=== PATIENT | female | born 1980 | race African-American/Black ===

== ENCOUNTER 2024-04-02 21:32 | Emergency (ER) | payer MEDICAID ==
[~2024-04-02] VITALS: Ht 167.6 cm; Wt 70.3 kg
[2024-04-02 21:50] VITALS: BP 138/94; PULSE 118; RESP 18; TEMP 97.1; O2SAT 99
[2024-04-02 22:44] LABS: BASOPHILS # (AUTO) 0.1 K/uL (0.00-0.22); BASOPHILS % (AUTO) 0.4 % (0.0-2.0); EOSINOPHILS % (AUTO) 0.2 % (0.0-4.0); HEMATOCRIT 29.2 % (36-48); HEMOGLOBIN 9.2 g/dL (12.0-16.0); LYMPHOCYTES # (AUTO) 3.9 K/uL (2.5-16.5); LYMPHOCYTES % (AUTO) 23.9 % (20.5-51.1); MEAN CORPUSCULAR HEMOGLOBIN 27 pg (27-31); MEAN CORPUSCULAR HGB CONC 32 g/dL (33-37); MEAN CORPUSCULAR VOLUME 85.8 fL (80-94); MONOCYTES # (AUTO) 0.6 K/uL (0.8-1.0); MONOCYTES % (AUTO) 3.8 % (1.7-9.3); NEUTROPHILS # (AUTO) 11.8 K/uL (1.8-7.7); NEUTROPHILS % (AUTO) 71.7 % (42.2-75.2); PLATELET COUNT (AUTO) 536 K/uL (140-450); RED CELL DISTRIBUTION WIDTH 23.7 % (11.6-13.7); WHITE BLOOD COUNT (AUTO) 16.4 K/uL (4.8-10.8)
[2024-04-02 22:53] LABS: CALCIUM 9.6 mg/dL (8.5-10.1); CARBON DIOXIDE 30.7 mmol/L (21-32); CREATININE 0.5 mg/dL (0.6-1.3)
[2024-04-02 22:58] LABS: POTASSIUM 2.7 mmol/L (3.5-5.1)
[2024-04-02 23:07] LABS: APPEARANCE,URINE CLEAR (CLEAR); COLOR,URINE YELLOW (YELLOW)
[2024-04-02 23:08] LABS: ALBUMIN 3.2 g/dL (3.4-5.0); TOTAL BILIRUBIN 1.4 mg/dL (0.0-1.0); TOTAL PROTEIN, SERUM 7.7 g/dL (6.4-8.2)
[2024-04-02 23:08] LABS: BILIRUBIN,URINE NEGATIVE (NEGATIVE); UGLUCOSE NEGATIVE (NEGATIVE)
[2024-04-02 23:09] LABS: PROTEIN,URINE SMALL (NEGATIVE)
[2024-04-02 23:10] LABS: BLOOD, URINE 2+ (NEGATIVE); LEUKOCYTE ESTERASE ,URINE NEGATIVE (NEGATIVE); UROBILINOGEN,URINE 0.4 EU/dL (0.2 - 1)
[2024-04-02 23:11] LABS: NITRITE, URINE POSITIVE (NEGATIVE)
[2024-04-02] MEDS: POTASSIUM CHLORIDE 10 MEQ TABER PO ONE (23:15)
[2024-04-02 23:28] LABS: BACTERIA,URINE 10-30 (MOD) /HPF (None Seen); MUCUS,URINE 1+ /LPF (None Seen); SQUAMOUS EPITHELIAL CELL,UR 0-3 (FEW) /LPF (0-3 (FEW)); WBC,URINE 0-5 /HPF (0-5)
[2024-04-03] MEDS ORDERED: IBUP-2213 PO (00:04)
[2024-04-03] MEDS ORDERED: ONDA8TAB87 PO (00:04)
[2024-04-03] MEDS ORDERED: OMEP40EC23 PO (00:04)
[2024-04-03 00:12] VITALS: BP 138/94; PULSE 114; RESP 18; TEMP 97.1; O2SAT 99
== END 2024-04-03 00:12 | disposition home or self-care (01) ==
LOC: MED 21:32
DX: R10.13 Epigastric pain (principal); R11.2 Nausea with vomiting, unspecified; F17.200 Nicotine dependence, unspecified, uncomplicated; Z72.89 Other problems related to lifestyle
CPT/HCPCS: 36415; 80048; 80076; 81001; 81025; 83690; 85025; 87086; 99284

== ENCOUNTER 2024-04-06 12:02 | Inpatient (IN) | payer MEDICAID ==
[~2024-04-06] VITALS: Ht 167.6 cm; Wt 70.3 kg
[~2024-04-06 12:02] MED LIST: IBUP-2213 PO; OMEP40EC23 PO; ONDA8TAB87 PO
[2024-04-06 12:23] VITALS: BP 119/79; PULSE 110; RESP 22; TEMP 98.5; O2SAT 100
[2024-04-06] MEDS: KETOROLAC 30 MG/ML VIAL IVP ONE (13:30)
[2024-04-06] MEDS: NACL 0.9% 1,000 ML IV ONE (13:30)
[2024-04-06 13:51] LABS: ALANINE AMINOTRANSFERASE 33 U/L (12-78); ALBUMIN 3.2 g/dL (3.4-5.0); ALKALINE PHOSPHATASE 298 U/L (50-136); ANION GAP 18.1 (8-16); ASPARTATE AMINOTRANSFERASE 128 U/L (15-37); CALCIUM 9.5 mg/dL (8.5-10.1); CARBON DIOXIDE 26.1 mmol/L (21-32); CHLORIDE 92 mmol/L (98-107); CREATININE 0.6 mg/dL (0.6-1.3); GFR ARICAN-AMERICAN 142 mL/min (>90); GFR NON ARICAN-AMERICAN 117 mL/min (>90); GLUCOSE 104 mg/dL (74-106); LIPASE 35 U/L (16-77); POTASSIUM 3.2 mmol/L (3.5-5.1); SODIUM SERUM 133 mmol/L (136-145); TOTAL BILIRUBIN 2.7 mg/dL (0.0-1.0); TOTAL PROTEIN, SERUM 7.4 g/dL (6.4-8.2); UREA NITROGEN, BLOOD 3 mg/dL (7-18)
[2024-04-06] MEDS ORDERED: IBUP-2213 PO (13:57)
[2024-04-06 14:10] LABS: HEMATOCRIT 30.4 % (36-48); HEMOGLOBIN 9.3 g/dL (12.0-16.0); MEAN CORPUSCULAR HEMOGLOBIN 27 pg (27-31); MEAN CORPUSCULAR HGB CONC 31 g/dL (33-37); MEAN CORPUSCULAR VOLUME 87.2 fL (80-94); PLATELET COUNT (AUTO) 566 K/uL (140-450); RED BLOOD CELL COUNT(AUTO) 3.48 MIL/uL (4.20-5.40); RED CELL DISTRIBUTION WIDTH 26.5 % (11.6-13.7); WHITE BLOOD COUNT (AUTO) 18.1 K/uL (4.8-10.8)
[2024-04-06 14:37] LABS: ANISOCYTOSIS 3+; BASOPHILS % (MANUAL) 0 % (0-2); EOSINOPHILS % (MANUAL) 0 % (0-4); HYPOCHROMASIA 2+; LYMPHOCYTES % (MANUAL) 15 % (20-46); MONOCYTES % (MANUAL) 5 % (5-12); PLATELET ESTIMATE INCREASED; POLYCHROMASIA 1+
[2024-04-06 14:38] LABS: OVALOCYTES 1+; TARGET CELLS 1+; TEAR DROP CELLS 1+
[2024-04-06 14:39] LABS: BURR CELLS 3+; STOMATOCYTES 1+
[2024-04-06 14:43] LABS: APPEARANCE,URINE SL CLOUDY (CLEAR); BILIRUBIN,URINE 3+ (NEGATIVE); BLOOD, URINE NEGATIVE (NEGATIVE); COLOR,URINE ORANGE (YELLOW); LEUKOCYTE ESTERASE ,URINE TRACE (NEGATIVE); NITRITE, URINE POSITIVE (NEGATIVE); PROTEIN,URINE 2+ (NEGATIVE); UGLUCOSE TRACE (NEGATIVE)
[2024-04-06 14:59] LABS: ICTOTEST POSITIVE (NEGATIVE)
[2024-04-06 15:00] LABS: BACTERIA,URINE 10-30 (MOD) /HPF (None Seen); RBC,URINE 0-5 /HPF (0-5); SQUAMOUS EPITHELIAL CELL,UR 4-10 (MOD) /LPF (0-3 (FEW)); WBC,URINE 0-5 /HPF (0-5)
[2024-04-06] MEDS ORDERED: ONDANSETRON 4 MG/2 ML VIAL IVP PRN (16:45)
[2024-04-06] MEDS ORDERED: HYDROmorphone 1 MG/ML AMP IVP PRN (16:45)
[2024-04-06] MEDS ORDERED: ACETAMINOPHEN 325 MG TAB PO PRN (16:45)
[2024-04-06] MEDS ORDERED: ZOLPIDEM 5 MG TAB PO PRN (16:45)
[2024-04-06] MEDS ORDERED: HYDROcodone/APAP 5/325 MG 1 TAB TAB PO PRN (16:45)
[2024-04-06] MEDS: DEXT 5% /NACL 0.9% 1,000 ML IV SCH (18:00)
[2024-04-06] MEDS: POTASSIUM CHLORIDE 10 MEQ TABER PO ONE (18:00)
[2024-04-06] MEDS ORDERED: metroNIDAZOLE 500 MG/NS PREMIX 100 ML IV SCH (21:00)
[2024-04-06 21:25] VITALS: BP 138/89; PULSE 103; PULSE 106; RESP 17; TEMP 97; O2SAT 100
[2024-04-06] MEDS: LORazepam 1 MG TAB PO PRN (22:37)
[2024-04-07] VITALS: BP 129/90; PULSE 108; PULSE 109; RESP 16; TEMP 97.5; O2SAT 98
[2024-04-07] MEDS: metroNIDAZOLE 500 MG/NS PREMIX 100 ML IV SCH (00:58)
[2024-04-07 04:00] VITALS: BP 119/81; PULSE 105; PULSE 107; RESP 17; TEMP 98.1; O2SAT 97
[2024-04-07 07:04] LABS: BASOPHILS % (AUTO) 0.1 % (0.0-2.0); EOSINOPHILS % (AUTO) 0.1 % (0.0-4.0); HEMOGLOBIN 8.1 g/dL (12.0-16.0); LYMPHOCYTES # (AUTO) 2.3 K/uL (2.5-16.5); LYMPHOCYTES % (AUTO) 15.9 % (20.5-51.1); MEAN CORPUSCULAR HEMOGLOBIN 27 pg (27-31); MEAN CORPUSCULAR HGB CONC 31 g/dL (33-37); MEAN CORPUSCULAR VOLUME 86.8 fL (80-94); MONOCYTES # (AUTO) 0.8 K/uL (0.8-1.0); MONOCYTES % (AUTO) 5.7 % (1.7-9.3); NEUTROPHILS # (AUTO) 11.3 K/uL (1.8-7.7); NEUTROPHILS % (AUTO) 78.2 % (42.2-75.2); PLATELET COUNT (AUTO) 449 K/uL (140-450); RED CELL DISTRIBUTION WIDTH 25.7 % (11.6-13.7); WHITE BLOOD COUNT (AUTO) 14.5 K/uL (4.8-10.8)
[2024-04-07 08:00] VITALS: BP_SYST 131; BP_SYST 133; BP_DIAS 84; BP_DIAS 86; PULSE 101; PULSE 107; RESP 18; TEMP 97.8; TEMP 98.3; O2SAT 100; O2SAT 98
[2024-04-07 08:13] LABS: ANION GAP 15.9 (8-16); CALCIUM 8.7 mg/dL (8.5-10.1); CARBON DIOXIDE 24.1 mmol/L (21-32); CREATININE 0.4 mg/dL (0.6-1.3)
[2024-04-07 08:19] LABS: ALBUMIN 2.7 g/dL (3.4-5.0); MAGNESIUM 1.8 mg/dL (1.8-2.4); PHOSPHORUS 2.6 mg/dL (2.5-4.9); TOTAL PROTEIN, SERUM 6.4 g/dL (6.4-8.2)
[2024-04-07] MEDS: DOCUSATE SODIUM 100 MG GELCAP PO SCH (08:37)
[2024-04-07] MEDS ORDERED: metroNIDAZOLE 500 MG/NS PREMIX 100 ML IV SCH (09:00)
[2024-04-07] MEDS: POTASSIUM CHLORIDE 10 MEQ TABER PO PRN (09:23)
[2024-04-07 12:00] VITALS: BP 131/86; PULSE 101; PULSE 103; RESP 18; TEMP 98.3; O2SAT 100
[2024-04-07] MEDS ORDERED: TRAM50TA3 PO (15:36)
[2024-04-07] MEDS ORDERED: OMEP40EC23 PO (15:36)
[2024-04-07 16:00] VITALS: BP 134/91; PULSE 102; PULSE 107; RESP 18; TEMP 98.6; O2SAT 99
[2024-04-07 16:44] VITALS: BP 134/91; PULSE 107; RESP 18; TEMP 98.6
== END 2024-04-07 17:04 | disposition home or self-care (01) | DRG 280 ==
LOC: MED 12:02 → MTU 16:47
PROVIDERS: ADMIT Hospitalist; ATTEND Hospitalist
DX: K70.10 Alcoholic hepatitis without ascites (principal); E87.1 Hypo-osmolality and hyponatremia; E87.20 Acidosis, unspecified; K74.60 Unspecified cirrhosis of liver; E87.6 Hypokalemia; F10.21 Alcohol dependence, in remission; Z79.899 Other long term (current) drug therapy
CPT/HCPCS: 36415; 71045; 76705; 80053; 81001; 82248; 83690; 83735; 84100; 84484; 85025; 87081; 87086; 93005; 96374; 96375; 99285; J0696; J1644; J1885; J3490; J7060; Q0092; Q9967

== ENCOUNTER 2024-04-13 13:29 | Emergency (ER) | payer MEDICAID ==
[~2024-04-13] VITALS: Ht 167.6 cm; Wt 68.0 kg
[~2024-04-13 13:29] MED LIST changes: -IBUP-2213 PO; +TRAM50TA3 PO
[2024-04-13 13:51] VITALS: BP 129/89; PULSE 125; RESP 18; TEMP 97.9; O2SAT 100
[2024-04-13 14:19] VITALS: BP 141/87; PULSE 123; RESP 18; TEMP 97.9
[2024-04-13 14:46] LABS: BILIRUBIN,URINE 3+ (NEGATIVE); BLOOD, URINE TRACE-I (NEGATIVE); COLOR,URINE YELLOW (YELLOW); LEUKOCYTE ESTERASE ,URINE TRACE (NEGATIVE); NITRITE, URINE POSITIVE (NEGATIVE); PROTEIN,URINE 2+ (NEGATIVE); UGLUCOSE TRACE (NEGATIVE)
[2024-04-13 14:47] LABS: APPEARANCE,URINE SLIGHTLY CLOUDY (CLEAR)
[2024-04-13 15:20] LABS: ICTOTEST POSITIVE (NEGATIVE); RBC,URINE 0-5 /HPF (0-5); WBC,URINE 0-5 /HPF (0-5)
[2024-04-13 15:21] LABS: BACTERIA,URINE 2+ /HPF (None Seen); MUCUS,URINE None Seen /LPF (None Seen); SQUAMOUS EPITHELIAL CELL,UR 4-10 (MOD) /LPF (0-3 (FEW))
[2024-04-13 15:29] LABS: BASOPHILS # (AUTO) 0.1 K/uL (0.00-0.22); BASOPHILS % (AUTO) 0.4 % (0.0-2.0); HEMATOCRIT 27.6 % (36-48); HEMOGLOBIN 8.7 g/dL (12.0-16.0); MEAN CORPUSCULAR HEMOGLOBIN 28 pg (27-31); MEAN CORPUSCULAR HGB CONC 32 g/dL (33-37); MEAN CORPUSCULAR VOLUME 89.2 fL (80-94); MONOCYTES % (AUTO) 5.8 % (1.7-9.3); NEUTROPHILS # (AUTO) 13.9 K/uL (1.8-7.7); NEUTROPHILS % (AUTO) 81.8 % (42.2-75.2); PLATELET COUNT (AUTO) 609 K/uL (140-450); RED CELL DISTRIBUTION WIDTH 28.3 % (11.6-13.7); WHITE BLOOD COUNT (AUTO) 16.9 K/uL (4.8-10.8)
[2024-04-13 15:30] VITALS: O2SAT 100
[2024-04-13 15:45] LABS: ANION GAP 14.1 (8-16); CALCIUM 9.6 mg/dL (8.5-10.1); CARBON DIOXIDE 27.7 mmol/L (21-32); CREATININE 0.5 mg/dL (0.6-1.3); POTASSIUM 3.8 mmol/L (3.5-5.1)
[2024-04-13 15:50] LABS: BILIRUBIN,DIRECT 2.2 mg/dL (0.0-0.3); TOTAL BILIRUBIN 2.8 mg/dL (0.0-1.0); TOTAL PROTEIN, SERUM 7.2 g/dL (6.4-8.2)
[2024-04-13] MEDS: NACL 0.9% 1,000 ML IV SCH (16:18)
[2024-04-13] MEDS ORDERED: ACET-8905 PO (17:15)
[2024-04-13] MEDS ORDERED: PRED20TA5 PO (17:32)
== END 2024-04-13 18:08 | disposition home or self-care (01) ==
LOC: MED 13:29
DX: R10.13 Epigastric pain (principal); F17.200 Nicotine dependence, unspecified, uncomplicated; Z79.899 Other long term (current) drug therapy
CPT/HCPCS: 36415; 80048; 80076; 81001; 83690; 85025; 96360; 99283; J7030

== ENCOUNTER 2024-04-16 16:26 | Inpatient (IN) | payer MEDICAID ==
[~2024-04-16] VITALS: Ht 165.1 cm; Wt 70.3 kg
[2024-04-16 02:08] VITALS: PULSE 114; RESP 16
[~2024-04-16 16:26] MED LIST changes: +ACET-8905 PO; +PRED20TA5 PO
[2024-04-16 16:43] VITALS: BP 120/78; PULSE 133; RESP 12; TEMP 97.5; O2SAT 98
[2024-04-16] MEDS: NACL 0.9% 1,000 ML IV ONE ×2 (17:29→19:45)
[2024-04-16 18:02] LABS: BASOPHILS % (AUTO) 0.1 % (0.0-2.0); EOSINOPHILS % (AUTO) 0.1 % (0.0-4.0); HEMATOCRIT 30.1 % (36-48); HEMOGLOBIN 9.2 g/dL (12.0-16.0); LYMPHOCYTES # (AUTO) 2.6 K/uL (2.5-16.5); LYMPHOCYTES % (AUTO) 10.5 % (20.5-51.1); MEAN CORPUSCULAR HEMOGLOBIN 27 pg (27-31); MEAN CORPUSCULAR HGB CONC 31 g/dL (33-37); MEAN CORPUSCULAR VOLUME 89.3 fL (80-94); MONOCYTES # (AUTO) 0.9 K/uL (0.8-1.0); MONOCYTES % (AUTO) 3.4 % (1.7-9.3); NEUTROPHILS # (AUTO) 21.7 K/uL (1.8-7.7); NEUTROPHILS % (AUTO) 85.9 % (42.2-75.2); PLATELET COUNT (AUTO) 777 K/uL (140-450); RED BLOOD CELL COUNT(AUTO) 3.37 MIL/uL (4.20-5.40); RED CELL DISTRIBUTION WIDTH 27.5 % (11.6-13.7)
[2024-04-16 18:08] LABS: WHITE BLOOD COUNT (AUTO) 25.3 K/uL (4.8-10.8)
[2024-04-16 18:13] LABS: ANION GAP 15.5 (8-16); CALCIUM 10.2 mg/dL (8.5-10.1); CARBON DIOXIDE 26.2 mmol/L (21-32); CREATININE 0.6 mg/dL (0.6-1.3); INR 1.32 (0.8-1.2); POTASSIUM 3.7 mmol/L (3.5-5.1); PROTHROMBIN TIME 13.7 secs (10.8-13.4)
[2024-04-16 18:24] LABS: ALBUMIN 3.2 g/dL (3.4-5.0); BILIRUBIN,DIRECT 2.4 mg/dL (0.0-0.3); TOTAL PROTEIN, SERUM 7.7 g/dL (6.4-8.2)
[2024-04-16 19:08] LABS: LACTIC ACID 2.8 mmol/L (0.4-2.0)
[2024-04-16 20:48] LABS: APPEARANCE,URINE CLEAR (CLEAR); BILIRUBIN,URINE 2+ (NEGATIVE); BLOOD, URINE 2+ (NEGATIVE); COLOR,URINE BROWN (YELLOW); LEUKOCYTE ESTERASE ,URINE TRACE (NEGATIVE); NITRITE, URINE NEGATIVE (NEGATIVE); PROTEIN,URINE NEGATIVE (NEGATIVE); UGLUCOSE NEGATIVE (NEGATIVE)
[2024-04-16 20:52] LABS: ICTOTEST POSITIVE (NEGATIVE)
[2024-04-16 21:01] LABS: AMPHETAMINE, URINE NEGATIVE ng/ml (NEG <=1000); BACTERIA,URINE 10-30 (MOD) /HPF (None Seen); BARBITURATE, URINE NEGATIVE ng/ml (NEG <=200); BENZODIAZEPINE, URINE NEGATIVE ng/mL (NEG <=200); CANNABINOID, URINE NEGATIVE ng/mL (NEG <=50); COCAINE, URINE NEGATIVE ng/mL (NEG <=300); OPIATE, URINE NEGATIVE ng/mL (NEG <=2000); PHENCYCLIDINE SCREEN,URINE NEGATIVE ng/mL (NEG <=25); SQUAMOUS EPITHELIAL CELL,UR 0-3 (FEW) /LPF (0-3 (FEW))
[2024-04-16] MEDS ORDERED: PIPERACILLIN/TAZOBACTAM 3.375 GM VIAL IV ONE (23:13)
[2024-04-16] MEDS: PIPERACILLIN/TAZOBACTAM 3.375 GM in DEXTROSE 5% 50 ML IV ONE (23:20)
[2024-04-16] MEDS ORDERED: KCL 20 MEQ IN 100 mL PREMIX 200 ML IV PRN (23:50)
[2024-04-16] MEDS ORDERED: HYDROcodone/APAP 5/325 MG 1 TAB TAB PO PRN (23:50)
[2024-04-17] MEDS: DEXT 5% /NACL 0.9% 1,000 ML IV SCH (00:35)
[2024-04-17 02:08] VITALS: BP 123/84; PULSE 114; RESP 16; TEMP 98.1; O2SAT 97
[2024-04-17] MEDS: MORPHINE SULFATE 4 MG/ML SYR IVP PRN (03:17)
[2024-04-17 04:00] VITALS: BP 129/80; PULSE 116; PULSE 119; RESP 16; TEMP 98; O2SAT 98
[2024-04-17] MEDS: PIPERACILLIN/TAZOBACTAM 3.375 GM in DEXTROSE 5% 50 ML IV SCH (06:39)
[2024-04-17 08:00] VITALS: BP 125/87; PULSE 116; PULSE 65; RESP 16; RESP 18; TEMP 97.1; O2SAT 99
[2024-04-17 08:45] LABS: BASOPHILS % (AUTO) 0.2 % (0.0-2.0); EOSINOPHILS % (AUTO) 0.1 % (0.0-4.0); HEMATOCRIT 27.7 % (36-48); HEMOGLOBIN 8.4 g/dL (12.0-16.0); MEAN CORPUSCULAR HEMOGLOBIN 28 pg (27-31); MEAN CORPUSCULAR HGB CONC 31 g/dL (33-37); MEAN CORPUSCULAR VOLUME 90.3 fL (80-94); MONOCYTES # (AUTO) 0.9 K/uL (0.8-1.0); MONOCYTES % (AUTO) 5.2 % (1.7-9.3); NEUTROPHILS # (AUTO) 15.1 K/uL (1.8-7.7); NEUTROPHILS % (AUTO) 83.5 % (42.2-75.2); PLATELET COUNT (AUTO) 572 K/uL (140-450); RED BLOOD CELL COUNT(AUTO) 3.07 MIL/uL (4.20-5.40); RED CELL DISTRIBUTION WIDTH 27.3 % (11.6-13.7); WHITE BLOOD COUNT (AUTO) 18.1 K/uL (4.8-10.8)
[2024-04-17 09:05] LABS: ALBUMIN 2.5 g/dL (3.4-5.0); ANION GAP 13.7 (8-16); CALCIUM 8.9 mg/dL (8.5-10.1); CARBON DIOXIDE 26.5 mmol/L (21-32); CREATININE 0.4 mg/dL (0.6-1.3); MAGNESIUM 1.8 mg/dL (1.8-2.4); POTASSIUM 3.2 mmol/L (3.5-5.1); TOTAL BILIRUBIN 2.4 mg/dL (0.0-1.0); TOTAL PROTEIN, SERUM 6.5 g/dL (6.4-8.2)
[2024-04-17 09:14] LABS: ANISOCYTOSIS 3+; TARGET CELLS 1+
[2024-04-17] MEDS: LORazepam 1 MG TAB PO PRN (10:58)
[2024-04-17 12:00] VITALS: BP 130/78; PULSE 123; PULSE 75; RESP 18; TEMP 98.7; O2SAT 98
[2024-04-17 16:00] VITALS: BP 128/78; PULSE 120; PULSE 68; RESP 20; TEMP 98.1; O2SAT 100
[2024-04-17 20:00] VITALS: BP 143/104; PULSE 118; PULSE 128; RESP 20; TEMP 98.2; O2SAT 100
[2024-04-17] MEDS: POTASSIUM CHLORIDE 10 MEQ TABER PO PRN (22:44)
[2024-04-17] MEDS: ZOLPIDEM 5 MG TAB PO PRN (22:44)
[2024-04-18 06:25] LABS: BASOPHILS % (AUTO) 0.2 % (0.0-2.0); EOSINOPHILS % (AUTO) 0.1 % (0.0-4.0); HEMATOCRIT 26.8 % (36-48); HEMOGLOBIN 8.3 g/dL (12.0-16.0); LYMPHOCYTES # (AUTO) 1.7 K/uL (2.5-16.5); LYMPHOCYTES % (AUTO) 10.4 % (20.5-51.1); MEAN CORPUSCULAR HEMOGLOBIN 27 pg (27-31); MEAN CORPUSCULAR HGB CONC 31 g/dL (33-37); MONOCYTES % (AUTO) 5.9 % (1.7-9.3); NEUTROPHILS % (AUTO) 83.4 % (42.2-75.2); PLATELET COUNT (AUTO) 623 K/uL (140-450); RED BLOOD CELL COUNT(AUTO) 3.01 MIL/uL (4.20-5.40); RED CELL DISTRIBUTION WIDTH 26.9 % (11.6-13.7); WHITE BLOOD COUNT (AUTO) 16.8 K/uL (4.8-10.8)
[2024-04-18 06:43] LABS: ALBUMIN 2.5 g/dL (3.4-5.0); ANION GAP 15.5 (8-16); CALCIUM 8.5 mg/dL (8.5-10.1); CARBON DIOXIDE 22.1 mmol/L (21-32); CREATININE 0.5 mg/dL (0.6-1.3); MAGNESIUM 1.8 mg/dL (1.8-2.4); POTASSIUM 3.6 mmol/L (3.5-5.1); TOTAL BILIRUBIN 2.2 mg/dL (0.0-1.0); TOTAL PROTEIN, SERUM 6.4 g/dL (6.4-8.2)
[2024-04-18 08:00] VITALS: BP 125/87; PULSE 110; PULSE 80; RESP 18; TEMP 98.1; O2SAT 99
[2024-04-18] MEDS: PANTOPRAZOLE 40 MG INJ VIAL IVP SCH (08:49)
[2024-04-18 12:00] VITALS: BP 138/80; PULSE 120; RESP 18; TEMP 98.6; O2SAT 99
[2024-04-18] MEDS: DOCUSATE SODIUM 100 MG GELCAP PO SCH (12:17)
[2024-04-18 16:00] VITALS: BP 132/87; PULSE 107; PULSE 118; RESP 18; TEMP 98.6; O2SAT 97
[2024-04-18] MEDS: PENTOXIFYLLINE 400 MG TABER PO SCH (17:00)
[2024-04-18 20:00] VITALS: BP 140/98; PULSE 119; PULSE 122; RESP 18; TEMP 97.5; O2SAT 98
[2024-04-19] VITALS: BP 132/86; PULSE 106; PULSE 127; RESP 18; TEMP 98.2; O2SAT 98
[2024-04-19 04:00] VITALS: BP 141/91; PULSE 114; PULSE 129; RESP 18; TEMP 98.4; O2SAT 97
[2024-04-19 06:25] LABS: BASOPHILS # (AUTO) 0.1 K/uL (0.00-0.22); BASOPHILS % (AUTO) 0.3 % (0.0-2.0); EOSINOPHILS # (AUTO) 0.1 K/uL (0-0.4); EOSINOPHILS % (AUTO) 0.3 % (0.0-4.0); HEMATOCRIT 26.1 % (36-48); LYMPHOCYTES # (AUTO) 1.9 K/uL (2.5-16.5); LYMPHOCYTES % (AUTO) 11.5 % (20.5-51.1); MEAN CORPUSCULAR HEMOGLOBIN 27 pg (27-31); MEAN CORPUSCULAR HGB CONC 31 g/dL (33-37); MEAN CORPUSCULAR VOLUME 88.9 fL (80-94); MONOCYTES % (AUTO) 5.8 % (1.7-9.3); NEUTROPHILS # (AUTO) 13.8 K/uL (1.8-7.7); NEUTROPHILS % (AUTO) 82.1 % (42.2-75.2); PLATELET COUNT (AUTO) 660 K/uL (140-450); RED BLOOD CELL COUNT(AUTO) 2.93 MIL/uL (4.20-5.40); RED CELL DISTRIBUTION WIDTH 26.4 % (11.6-13.7); WHITE BLOOD COUNT (AUTO) 16.8 K/uL (4.8-10.8)
[2024-04-19 06:31] LABS: ALBUMIN 2.5 g/dL (3.4-5.0); ANION GAP 14.8 (8-16); CALCIUM 8.8 mg/dL (8.5-10.1); CREATININE 0.4 mg/dL (0.6-1.3); MAGNESIUM 1.7 mg/dL (1.8-2.4); POTASSIUM 3.8 mmol/L (3.5-5.1); TOTAL BILIRUBIN 1.9 mg/dL (0.0-1.0); TOTAL PROTEIN, SERUM 6.7 g/dL (6.4-8.2)
[2024-04-19 08:00] VITALS: BP 131/92; PULSE 118; PULSE 119; RESP 16; RESP 18; TEMP 98.7; O2SAT 96; O2SAT 98
[2024-04-19] MEDS: FOLIC ACID 1 MG TAB PO SCH (09:26)
[2024-04-19] MEDS: MULTIVITAMIN/MINERALS 1 TAB PO SCH (09:26)
[2024-04-19] MEDS: THIAMINE 100 MG TAB PO SCH (09:26)
[2024-04-19 12:00] VITALS: BP 130/84; PULSE 121; PULSE 122; RESP 18; TEMP 96.7; O2SAT 99
[2024-04-19 16:00] VITALS: BP 127/89; PULSE 121; PULSE 124; RESP 18; TEMP 97.7; O2SAT 97
[2024-04-19] MEDS ORDERED: SENNA 8.6 MG TAB PO SCH (18:15)
[2024-04-19 20:00] VITALS: BP 119/93; PULSE 123; PULSE 124; RESP 18; TEMP 96.9; O2SAT 99
[2024-04-19] MEDS: POLYETHYLENE GLYCOL 17 GM/PKT PO SCH (21:44)
[2024-04-19] MEDS: LACTULOSE 20 GM/30 ML UDC PO SCH (21:44)
[2024-04-20] VITALS (7 sets, daily range): BP systolic 127–148; BP diastolic 90–100; PULSE 100–129; RESP 18–24; TEMP 97.5–97.9; O2SAT 96–100
[2024-04-20 05:36] LABS: BASOPHILS # (AUTO) 0.1 K/uL (0.00-0.22); BASOPHILS % (AUTO) 0.5 % (0.0-2.0); EOSINOPHILS % (AUTO) 0.2 % (0.0-4.0); HEMATOCRIT 27.2 % (36-48); HEMOGLOBIN 8.5 g/dL (12.0-16.0); LYMPHOCYTES # (AUTO) 2.4 K/uL (2.5-16.5); LYMPHOCYTES % (AUTO) 14.3 % (20.5-51.1); MEAN CORPUSCULAR HEMOGLOBIN 28 pg (27-31); MEAN CORPUSCULAR HGB CONC 31 g/dL (33-37); MEAN CORPUSCULAR VOLUME 89.5 fL (80-94); MONOCYTES % (AUTO) 5.8 % (1.7-9.3); NEUTROPHILS # (AUTO) 13.2 K/uL (1.8-7.7); NEUTROPHILS % (AUTO) 79.2 % (42.2-75.2); PLATELET COUNT (AUTO) 729 K/uL (140-450); RED BLOOD CELL COUNT(AUTO) 3.04 MIL/uL (4.20-5.40); RED CELL DISTRIBUTION WIDTH 26.3 % (11.6-13.7); WHITE BLOOD COUNT (AUTO) 16.7 K/uL (4.8-10.8)
[2024-04-20 05:50] LABS: ALBUMIN 2.5 g/dL (3.4-5.0); ANION GAP 14.1 (8-16); CALCIUM 9.3 mg/dL (8.5-10.1); CARBON DIOXIDE 26.3 mmol/L (21-32); CREATININE 0.4 mg/dL (0.6-1.3); MAGNESIUM 1.7 mg/dL (1.8-2.4); POTASSIUM 3.4 mmol/L (3.5-5.1); TOTAL BILIRUBIN 1.6 mg/dL (0.0-1.0); TOTAL PROTEIN, SERUM 6.8 g/dL (6.4-8.2)
[2024-04-20] MEDS ORDERED: LACTULOSE 20 GM/30 ML UDC PO SCH (09:00)
[2024-04-20] MEDS: fentaNYL citrate 0.05 MG/ML VIAL ONE (12:46)
[2024-04-20] MEDS: MIDAZOLAM 5 MG/5 ML VIAL ONE (12:46)
[2024-04-20] MEDS: diphenhydrAMINE 50 MG/ML VIAL ONE (12:46)
[2024-04-20] MEDS: MIDAZOLAM 5 MG/5 ML VIAL IV ONE (13:26)
[2024-04-20] MEDS: fentaNYL citrate 0.05 MG/ML VIAL IVP ONE (13:27)
[2024-04-20 16:20] LABS: THYROID STIMULATING HORMONE 6.74 uIU/mL (0.34-3.74)
[2024-04-20] MEDS: LACTULOSE 20 GM/30 ML UDC PO SCH (18:29)
[2024-04-20] MEDS: ACETAMINOPHEN 325 MG TAB PO PRN (18:30)
[2024-04-20] MEDS: SPIRONOLACTONE 25 MG TAB PO SCH (18:30)
[2024-04-20] MEDS: AMITRIPTYLINE 10 MG TAB PO SCH (20:15)
[2024-04-20] MEDS: GABAPENTIN 100 MG CAP PO SCH (20:15)
[2024-04-20] MEDS ORDERED: SENNA 8.6 MG TAB PO SCH (21:00)
[2024-04-21] VITALS (7 sets, daily range): BP systolic 133–143; BP diastolic 90–99; PULSE 121–134; RESP 18–20; TEMP 97.2–97.8; O2SAT 97–100
[2024-04-21 06:40] LABS: BASOPHILS # (AUTO) 0.2 K/uL (0.00-0.22); BASOPHILS % (AUTO) 0.8 % (0.0-2.0); EOSINOPHILS % (AUTO) 0.2 % (0.0-4.0); HEMATOCRIT 27.2 % (36-48); HEMOGLOBIN 8.5 g/dL (12.0-16.0); LYMPHOCYTES # (AUTO) 2.4 K/uL (2.5-16.5); LYMPHOCYTES % (AUTO) 11.6 % (20.5-51.1); MEAN CORPUSCULAR HEMOGLOBIN 28 pg (27-31); MEAN CORPUSCULAR HGB CONC 31 g/dL (33-37); MEAN CORPUSCULAR VOLUME 89.2 fL (80-94); MONOCYTES # (AUTO) 1.4 K/uL (0.8-1.0); MONOCYTES % (AUTO) 6.7 % (1.7-9.3); NEUTROPHILS # (AUTO) 16.7 K/uL (1.8-7.7); NEUTROPHILS % (AUTO) 80.7 % (42.2-75.2); PLATELET COUNT (AUTO) 778 K/uL (140-450); RED BLOOD CELL COUNT(AUTO) 3.05 MIL/uL (4.20-5.40); RED CELL DISTRIBUTION WIDTH 25.4 % (11.6-13.7); WHITE BLOOD COUNT (AUTO) 20.6 K/uL (4.8-10.8)
[2024-04-21 07:11] LABS: ALBUMIN 2.7 g/dL (3.4-5.0); ANION GAP 14.6 (8-16); CALCIUM 9.4 mg/dL (8.5-10.1); CARBON DIOXIDE 25.1 mmol/L (21-32); CREATININE 0.4 mg/dL (0.6-1.3); MAGNESIUM 1.5 mg/dL (1.8-2.4); POTASSIUM 3.7 mmol/L (3.5-5.1); TOTAL BILIRUBIN 1.9 mg/dL (0.0-1.0); TOTAL PROTEIN, SERUM 7.2 g/dL (6.4-8.2)
[2024-04-21] MEDS: FUROSEMIDE 20 MG TAB PO SCH (10:12)
[2024-04-21] MEDS: SPIRONOLACTONE 25 MG TAB PO SCH (10:13)
[2024-04-21 11:55] LABS: HEPATITIS B SURFACE ANTIBODY Reactive (.); HEPATITIS B SURFACE ANTIGEN Negative (Negative); HEPATITIS C AB Non Reactive (Non Reactive)
[2024-04-21] MEDS: HYDROcodone/APAP 5/325 MG 1 TAB TAB PO PRN (17:43)
[2024-04-21 20:19] LABS: HEPATITIS A ANTIBODY TOTAL POSITIVE (Negative)
[2024-04-21 20:21] LABS: HEPATITIS C PCR QUANTITATIVE NON REACTIVE
[2024-04-21] MEDS: MAG SULF 2000 MG/WATER PREMIX 50 ML IV PRN (21:46)
[2024-04-22] VITALS (7 sets, daily range): BP systolic 127–145; BP diastolic 81–98; PULSE 101–138; RESP 18–20; TEMP 97.4–99.3; O2SAT 95–100
[2024-04-22] MEDS: NACL 0.9% 1,000 ML IV SCH (17:44)
[2024-04-23] VITALS (7 sets, daily range): BP systolic 120–143; BP diastolic 76–100; PULSE 120–138; RESP 18; TEMP 97.2–98.7; O2SAT 96–100
[2024-04-23 13:42] LABS: HEMOGLOBIN 8.2 g/dL (12.0-16.0)
[2024-04-23 13:43] LABS: MEAN CORPUSCULAR HEMOGLOBIN 27 pg (27-31); MEAN CORPUSCULAR HGB CONC 31 g/dL (33-37); MEAN CORPUSCULAR VOLUME 88.5 fL (80-94); PLATELET COUNT (AUTO) 778 K/uL (140-450); RED BLOOD CELL COUNT(AUTO) 3.05 MIL/uL (4.20-5.40); RED CELL DISTRIBUTION WIDTH 25.2 % (11.6-13.7)
[2024-04-23 13:50] LABS: ALBUMIN 2.5 g/dL (3.4-5.0); ANION GAP 17.5 (8-16); CALCIUM 9.1 mg/dL (8.5-10.1); CARBON DIOXIDE 23.7 mmol/L (21-32); CREATININE 0.4 mg/dL (0.6-1.3); POTASSIUM 4.2 mmol/L (3.5-5.1); TOTAL BILIRUBIN 2.1 mg/dL (0.0-1.0); TOTAL PROTEIN, SERUM 7.1 g/dL (6.4-8.2)
[2024-04-23 14:20] LABS: WHITE BLOOD COUNT (AUTO) 27.9 K/uL (4.8-10.8)
[2024-04-23 16:49] LABS: LYMPHOCYTES % (MANUAL) 10 % (20-46); MONOCYTES % (MANUAL) 2 % (5-12)
[2024-04-23 16:50] LABS: ANISOCYTOSIS 2+; HYPOCHROMASIA 3+; PLATELET ESTIMATE INCREASED
[2024-04-24] VITALS (7 sets, daily range): BP systolic 122–140; BP diastolic 66–96; PULSE 120–131; RESP 18; TEMP 97.1–98.6; O2SAT 95–100
[2024-04-24 06:11] LABS: ANTI-NUCLEAR ANTIBODY TITER Negative (.)
[2024-04-25] VITALS (9 sets, daily range): BP systolic 117–143; BP diastolic 62–98; PULSE 119–138; RESP 17–20; TEMP 97.2–98.7; O2SAT 96–100
[2024-04-25] MEDS: ZOLPIDEM 5 MG TAB PO STA (02:02)
[2024-04-25 17:58] LABS: ANION GAP 15.3 (8-16); CALCIUM 9.1 mg/dL (8.5-10.1); CARBON DIOXIDE 24.2 mmol/L (21-32); CREATININE 0.4 mg/dL (0.6-1.3); POTASSIUM 3.5 mmol/L (3.5-5.1)
[2024-04-25 18:06] LABS: ALBUMIN 2.5 g/dL (3.4-5.0); BILIRUBIN,DIRECT 1.3 mg/dL (0.0-0.3); TOTAL BILIRUBIN 1.4 mg/dL (0.0-1.0); TOTAL PROTEIN, SERUM 7.3 g/dL (6.4-8.2)
[2024-04-26] VITALS: BP 156/88; PULSE 126; PULSE 127; RESP 19; TEMP 97.8; O2SAT 97
[2024-04-26] MEDS: ZOLPIDEM 5 MG TAB PO PRN (00:34)
[2024-04-26 04:00] VITALS: BP 150/82; PULSE 122; PULSE 123; RESP 19; TEMP 98.1; O2SAT 98
[2024-04-26 08:00] VITALS: BP 156/115; PULSE 119; PULSE 120; PULSE 128; RESP 19; TEMP 97.8; O2SAT 97; O2SAT 99
[2024-04-26 12:00] VITALS: BP 142/87; PULSE 121; PULSE 124; RESP 19; TEMP 97.7; O2SAT 98
[2024-04-26 16:00] VITALS: BP 150/98; PULSE 123; PULSE 124; RESP 19; TEMP 97.6; O2SAT 97
[2024-04-26 20:00] VITALS: BP 160/90; PULSE 68; PULSE 76; PULSE 80; RESP 18; TEMP 97.6; O2SAT 97
[2024-04-27] VITALS (7 sets, daily range): BP systolic 120–156; BP diastolic 70–96; PULSE 88–128; RESP 16–20; TEMP 97.4–98.3; O2SAT 96–99
[2024-04-27] MEDS ORDERED: KCL 20 MEQ IN 100 mL PREMIX 200 ML IV PRN (09:15)
[2024-04-27] MEDS ORDERED: MAG SULF 2000 MG/WATER PREMIX 50 ML IV PRN (09:15)
[2024-04-27 12:46] LABS: BASOPHILS # (AUTO) 0.2 K/uL (0.00-0.22); EOSINOPHILS # (AUTO) 0.1 K/uL (0-0.4); EOSINOPHILS % (AUTO) 0.3 % (0.0-4.0); LYMPHOCYTES # (AUTO) 1.8 K/uL (2.5-16.5); LYMPHOCYTES % (AUTO) 9.9 % (20.5-51.1); MEAN CORPUSCULAR HEMOGLOBIN 27 pg (27-31); MEAN CORPUSCULAR HGB CONC 31 g/dL (33-37); MEAN CORPUSCULAR VOLUME 86.1 fL (80-94); MONOCYTES # (AUTO) 1.1 K/uL (0.8-1.0); MONOCYTES % (AUTO) 6.1 % (1.7-9.3); NEUTROPHILS # (AUTO) 15.2 K/uL (1.8-7.7); NEUTROPHILS % (AUTO) 82.7 % (42.2-75.2); PLATELET COUNT (AUTO) 653 K/uL (140-450); RED BLOOD CELL COUNT(AUTO) 3.03 MIL/uL (4.20-5.40); RED CELL DISTRIBUTION WIDTH 23.8 % (11.6-13.7); WHITE BLOOD COUNT (AUTO) 18.4 K/uL (4.8-10.8)
[2024-04-27 12:48] LABS: FOLIC ACID 4.1 ng/mL (>3.0)
[2024-04-27 13:00] LABS: ALBUMIN 2.3 g/dL (3.4-5.0); BILIRUBIN,DIRECT 1.2 mg/dL (0.0-0.3); TOTAL BILIRUBIN 1.3 mg/dL (0.0-1.0)
[2024-04-27] MEDS: LUBIPROSTONE 24 MCG CAPSULE PO SCH (17:27)
[2024-04-27] MEDS: AMITRIPTYLINE 25 MG TAB PO SCH (20:07)
[2024-04-28 04:00] VITALS: BP 148/89; PULSE 125; RESP 19; TEMP 98.2; O2SAT 97
[2024-04-28 05:45] LABS: BASOPHILS # (AUTO) 0.1 K/uL (0.00-0.22); BASOPHILS % (AUTO) 0.5 % (0.0-2.0); EOSINOPHILS # (AUTO) 0.1 K/uL (0-0.4); EOSINOPHILS % (AUTO) 0.3 % (0.0-4.0); HEMATOCRIT 26.7 % (36-48); HEMOGLOBIN 8.3 g/dL (12.0-16.0); LYMPHOCYTES % (AUTO) 14.8 % (20.5-51.1); MEAN CORPUSCULAR HEMOGLOBIN 27 pg (27-31); MEAN CORPUSCULAR HGB CONC 31 g/dL (33-37); MONOCYTES # (AUTO) 1.2 K/uL (0.8-1.0); NEUTROPHILS # (AUTO) 15.7 K/uL (1.8-7.7); NEUTROPHILS % (AUTO) 78.4 % (42.2-75.2); PLATELET COUNT (AUTO) 661 K/uL (140-450); RED BLOOD CELL COUNT(AUTO) 3.11 MIL/uL (4.20-5.40); RED CELL DISTRIBUTION WIDTH 24.1 % (11.6-13.7)
[2024-04-28 06:35] LABS: ALBUMIN 2.4 g/dL (3.4-5.0); ANION GAP 14.5 (8-16); CALCIUM 9.4 mg/dL (8.5-10.1); CARBON DIOXIDE 23.8 mmol/L (21-32); CREATININE 0.4 mg/dL (0.6-1.3); MAGNESIUM 1.7 mg/dL (1.8-2.4); POTASSIUM 3.3 mmol/L (3.5-5.1); TOTAL BILIRUBIN 1.3 mg/dL (0.0-1.0); TOTAL PROTEIN, SERUM 7.3 g/dL (6.4-8.2)
[2024-04-28 08:00] VITALS: PULSE 118; RESP 18; O2SAT 96
[2024-04-28] MEDS: POTASSIUM CHLORIDE 10 MEQ TABER PO PRN (09:28)
[2024-04-28] MEDS: MAGNESIUM OXIDE 400 MG TAB PO PRN (09:29)
[2024-04-28 12:00] VITALS: BP 147/90; PULSE 121; RESP 18; TEMP 97.6; O2SAT 97
[2024-04-28 20:00] VITALS: BP 131/81; PULSE 121; RESP 19; TEMP 96.7; O2SAT 96; O2SAT 97
[2024-04-29] MEDS: TEMAZEPAM 15 MG CAP PO PRN (01:03)
[2024-04-29 04:00] VITALS: BP 176/100; PULSE 127; RESP 18; TEMP 96.5; O2SAT 96
[2024-04-29 06:09] LABS: BASOPHILS # (AUTO) 0.1 K/uL (0.00-0.22); BASOPHILS % (AUTO) 0.3 % (0.0-2.0); EOSINOPHILS # (AUTO) 0.1 K/uL (0-0.4); EOSINOPHILS % (AUTO) 0.3 % (0.0-4.0); HEMATOCRIT 27.3 % (36-48); HEMOGLOBIN 8.4 g/dL (12.0-16.0); LYMPHOCYTES # (AUTO) 3.1 K/uL (2.5-16.5); LYMPHOCYTES % (AUTO) 14.8 % (20.5-51.1); MEAN CORPUSCULAR HEMOGLOBIN 26 pg (27-31); MEAN CORPUSCULAR HGB CONC 31 g/dL (33-37); MEAN CORPUSCULAR VOLUME 85.9 fL (80-94); MONOCYTES # (AUTO) 1.4 K/uL (0.8-1.0); MONOCYTES % (AUTO) 6.8 % (1.7-9.3); NEUTROPHILS # (AUTO) 16.2 K/uL (1.8-7.7); NEUTROPHILS % (AUTO) 77.8 % (42.2-75.2); PLATELET COUNT (AUTO) 679 K/uL (140-450); RED BLOOD CELL COUNT(AUTO) 3.18 MIL/uL (4.20-5.40); RED CELL DISTRIBUTION WIDTH 23.7 % (11.6-13.7); WHITE BLOOD COUNT (AUTO) 20.9 K/uL (4.8-10.8)
[2024-04-29 06:32] LABS: ALBUMIN 2.6 g/dL (3.4-5.0); ANION GAP 15.1 (8-16); CALCIUM 9.7 mg/dL (8.5-10.1); CARBON DIOXIDE 23.8 mmol/L (21-32); CREATININE 0.4 mg/dL (0.6-1.3); MAGNESIUM 1.7 mg/dL (1.8-2.4); POTASSIUM 3.9 mmol/L (3.5-5.1); TOTAL BILIRUBIN 1.3 mg/dL (0.0-1.0); TOTAL PROTEIN, SERUM 7.8 g/dL (6.4-8.2)
[2024-04-29 08:00] VITALS: PULSE 121; RESP 19; O2SAT 97
[2024-04-29 10:26] LABS: THYROID STIMULATING HORMONE 4.23 uIU/mL (0.34-3.74)
[2024-04-29] MEDS: MAGNESIUM OXIDE 400 MG TAB PO PRN (10:43)
[2024-04-29 12:00] VITALS: TEMP 98
[2024-04-29 16:00] VITALS: BP 133/92; PULSE 125; RESP 18; TEMP 97.6; O2SAT 98
[2024-04-29 16:28] VITALS: O2SAT 100
[2024-04-29 20:00] VITALS: PULSE 78; RESP 19; O2SAT 93
[2024-04-29] MEDS: HYDROcodone/APAP 5/325 MG 1 TAB TAB PO PRN (22:42)
[2024-04-30 04:00] VITALS: BP 135/87; PULSE 127; RESP 19; TEMP 96.6; O2SAT 98
[2024-04-30 05:30] LABS: BASOPHILS # (AUTO) 0.1 K/uL (0.00-0.22); BASOPHILS % (AUTO) 0.5 % (0.0-2.0); EOSINOPHILS # (AUTO) 0.1 K/uL (0-0.4); EOSINOPHILS % (AUTO) 0.3 % (0.0-4.0); HEMATOCRIT 28.2 % (36-48); HEMOGLOBIN 8.7 g/dL (12.0-16.0); LYMPHOCYTES # (AUTO) 3.1 K/uL (2.5-16.5); LYMPHOCYTES % (AUTO) 13.8 % (20.5-51.1); MEAN CORPUSCULAR HEMOGLOBIN 27 pg (27-31); MEAN CORPUSCULAR HGB CONC 31 g/dL (33-37); MEAN CORPUSCULAR VOLUME 85.5 fL (80-94); MONOCYTES # (AUTO) 1.4 K/uL (0.8-1.0); MONOCYTES % (AUTO) 6.4 % (1.7-9.3); NEUTROPHILS # (AUTO) 17.6 K/uL (1.8-7.7); PLATELET COUNT (AUTO) 736 K/uL (140-450); RED CELL DISTRIBUTION WIDTH 23.6 % (11.6-13.7); WHITE BLOOD COUNT (AUTO) 22.2 K/uL (4.8-10.8)
[2024-04-30 06:17] LABS: ALBUMIN 2.6 g/dL (3.4-5.0); ANION GAP 15.6 (8-16); CALCIUM 9.5 mg/dL (8.5-10.1); CARBON DIOXIDE 23.9 mmol/L (21-32); CREATININE 0.4 mg/dL (0.6-1.3); MAGNESIUM 1.8 mg/dL (1.8-2.4); POTASSIUM 3.5 mmol/L (3.5-5.1); TOTAL BILIRUBIN 1.3 mg/dL (0.0-1.0)
[2024-04-30 08:00] VITALS: PULSE 121; RESP 18; O2SAT 98
[2024-04-30 12:00] VITALS: BP 136/91; PULSE 121; RESP 18; TEMP 97.8; O2SAT 98
[2024-04-30 15:14] VITALS: O2SAT 97
[2024-04-30] MEDS: methocarbamoL 500 MG TAB PO PRN (18:00)
[2024-04-30 20:00] VITALS: BP 136/88; PULSE 129; RESP 18; TEMP 97.6; O2SAT 97; O2SAT 98
[2024-05-01 04:00] VITALS: BP 129/83; PULSE 128; RESP 20; TEMP 97.7; O2SAT 97
[2024-05-01 05:31] LABS: BASOPHILS # (AUTO) 0.1 K/uL (0.00-0.22); BASOPHILS % (AUTO) 0.7 % (0.0-2.0); EOSINOPHILS # (AUTO) 0.1 K/uL (0-0.4); EOSINOPHILS % (AUTO) 0.2 % (0.0-4.0); HEMOGLOBIN 8.6 g/dL (12.0-16.0); LYMPHOCYTES # (AUTO) 3.3 K/uL (2.5-16.5); LYMPHOCYTES % (AUTO) 15.5 % (20.5-51.1); MEAN CORPUSCULAR HEMOGLOBIN 26 pg (27-31); MEAN CORPUSCULAR HGB CONC 31 g/dL (33-37); MEAN CORPUSCULAR VOLUME 84.9 fL (80-94); MONOCYTES # (AUTO) 1.3 K/uL (0.8-1.0); NEUTROPHILS # (AUTO) 16.4 K/uL (1.8-7.7); NEUTROPHILS % (AUTO) 77.6 % (42.2-75.2); PLATELET COUNT (AUTO) 707 K/uL (140-450); RED CELL DISTRIBUTION WIDTH 22.8 % (11.6-13.7); WHITE BLOOD COUNT (AUTO) 21.2 K/uL (4.8-10.8)
[2024-05-01 06:11] LABS: ALBUMIN 2.6 g/dL (3.4-5.0); ANION GAP 16.9 (8-16); CALCIUM 9.6 mg/dL (8.5-10.1); CARBON DIOXIDE 23.6 mmol/L (21-32); CREATININE 0.4 mg/dL (0.6-1.3); MAGNESIUM 1.6 mg/dL (1.8-2.4); POTASSIUM 3.5 mmol/L (3.5-5.1); TOTAL BILIRUBIN 1.3 mg/dL (0.0-1.0); TOTAL PROTEIN, SERUM 7.9 g/dL (6.4-8.2)
[2024-05-01 08:00] VITALS: PULSE 119; RESP 18; O2SAT 100
[2024-05-01 09:07] LABS: THYROID PEROXIDASE (TPO) AB 12 IU/mL (0-34)
[2024-05-01 12:00] VITALS: BP 141/95; PULSE 119; RESP 18; TEMP 97.5; O2SAT 100
[2024-05-01 16:58] VITALS: O2SAT 97
[2024-05-01 20:00] VITALS: BP 138/87; PULSE 128; RESP 20; TEMP 98.3; O2SAT 96; O2SAT 97
[2024-05-02 04:00] VITALS: BP 143/93; PULSE 123; RESP 21; TEMP 97.8; O2SAT 96
[2024-05-02 05:58] LABS: BASOPHILS # (AUTO) 0.2 K/uL (0.00-0.22); BASOPHILS % (AUTO) 1.3 % (0.0-2.0); EOSINOPHILS # (AUTO) 0.1 K/uL (0-0.4); EOSINOPHILS % (AUTO) 0.4 % (0.0-4.0); HEMATOCRIT 28.7 % (36-48); HEMOGLOBIN 8.7 g/dL (12.0-16.0); LYMPHOCYTES # (AUTO) 3.1 K/uL (2.5-16.5); LYMPHOCYTES % (AUTO) 16.2 % (20.5-51.1); MEAN CORPUSCULAR HEMOGLOBIN 26 pg (27-31); MEAN CORPUSCULAR HGB CONC 30 g/dL (33-37); MEAN CORPUSCULAR VOLUME 86.3 fL (80-94); MONOCYTES # (AUTO) 1.3 K/uL (0.8-1.0); MONOCYTES % (AUTO) 6.6 % (1.7-9.3); NEUTROPHILS # (AUTO) 14.7 K/uL (1.8-7.7); NEUTROPHILS % (AUTO) 75.5 % (42.2-75.2); PLATELET COUNT (AUTO) 716 K/uL (140-450); RED BLOOD CELL COUNT(AUTO) 3.33 MIL/uL (4.20-5.40); RED CELL DISTRIBUTION WIDTH 22.7 % (11.6-13.7); WHITE BLOOD COUNT (AUTO) 19.4 K/uL (4.8-10.8)
[2024-05-02 06:07] LABS: ALBUMIN 2.6 g/dL (3.4-5.0); ANION GAP 13.9 (8-16); CALCIUM 9.5 mg/dL (8.5-10.1); CARBON DIOXIDE 26.6 mmol/L (21-32); CREATININE 0.4 mg/dL (0.6-1.3); MAGNESIUM 1.8 mg/dL (1.8-2.4); POTASSIUM 3.5 mmol/L (3.5-5.1); TOTAL BILIRUBIN 1.2 mg/dL (0.0-1.0)
[2024-05-02 08:00] VITALS: PULSE 123; RESP 18; O2SAT 95
[2024-05-02] MEDS ORDERED: AMIT25TA29 PO (11:37)
[2024-05-02] MEDS ORDERED: LUBI24SG4 PO (11:37)
[2024-05-02] MEDS ORDERED: MULT-2086 PO (11:37)
[2024-05-02] MEDS ORDERED: ACET-9525 PO (11:37)
[2024-05-02] MEDS ORDERED: THIA-34 PO (11:37)
[2024-05-02] MEDS ORDERED: GABA-636 PO (11:37)
[2024-05-02] MEDS ORDERED: FOLI1TAB90 PO (11:37)
[2024-05-02 14:00] VITALS: BP 132/87; PULSE 105; RESP 18; TEMP 97.8; O2SAT 92
[2024-05-02 20:00] VITALS: BP 134/89; PULSE 128; RESP 18; TEMP 96.7; O2SAT 97
[2024-05-02] MEDS: SODIUM PHOSPHATE 118 ML ENEM RC SCH (21:32)
[2024-05-03 04:00] VITALS: BP 125/83; PULSE 121; RESP 18; TEMP 98; O2SAT 99
[2024-05-03 08:00] VITALS: PULSE 111; RESP 18; O2SAT 97
[2024-05-03 12:00] VITALS: BP 134/84; PULSE 121; RESP 18; TEMP 98.2; O2SAT 99
[2024-05-03 20:03] VITALS: PULSE 125; RESP 18; O2SAT 96
[2024-05-03 20:12] VITALS: BP 125/84; PULSE 125; RESP 18; TEMP 97.9; O2SAT 96
[2024-05-04 04:00] VITALS: BP 120/81; PULSE 122; RESP 18; TEMP 98; O2SAT 97
[2024-05-04 08:00] VITALS: PULSE 124; RESP 18; O2SAT 96
[2024-05-04 12:00] VITALS: BP 151/93; PULSE 124; RESP 18; TEMP 97.5; O2SAT 96
[2024-05-04 15:59] LABS: BASOPHILS % (AUTO) 0.3 % (0.0-2.0); EOSINOPHILS % (AUTO) 0.3 % (0.0-4.0); HEMATOCRIT 28.1 % (36-48); HEMOGLOBIN 8.4 g/dL (12.0-16.0); LYMPHOCYTES # (AUTO) 2.2 K/uL (2.5-16.5); LYMPHOCYTES % (AUTO) 13.2 % (20.5-51.1); MEAN CORPUSCULAR HEMOGLOBIN 26 pg (27-31); MEAN CORPUSCULAR HGB CONC 30 g/dL (33-37); MEAN CORPUSCULAR VOLUME 85.2 fL (80-94); MONOCYTES # (AUTO) 1.3 K/uL (0.8-1.0); MONOCYTES % (AUTO) 7.6 % (1.7-9.3); NEUTROPHILS # (AUTO) 13.1 K/uL (1.8-7.7); NEUTROPHILS % (AUTO) 78.6 % (42.2-75.2); PLATELET COUNT (AUTO) 830 K/uL (140-450); RED CELL DISTRIBUTION WIDTH 22.8 % (11.6-13.7); WHITE BLOOD COUNT (AUTO) 16.7 K/uL (4.8-10.8)
[2024-05-04 16:57] LABS: ALBUMIN 2.7 g/dL (3.4-5.0); ANION GAP 15.2 (8-16); CALCIUM 9.6 mg/dL (8.5-10.1); CARBON DIOXIDE 26.4 mmol/L (21-32); CREATININE 0.4 mg/dL (0.6-1.3); POTASSIUM 3.6 mmol/L (3.5-5.1); TOTAL PROTEIN, SERUM 8.1 g/dL (6.4-8.2)
[2024-05-04 20:00] VITALS: BP 138/87; PULSE 110; PULSE 130; RESP 16; RESP 18; TEMP 97.8; O2SAT 100; O2SAT 97
[2024-05-05 04:00] VITALS: BP 129/88; PULSE 112; RESP 16; TEMP 97.9; O2SAT 97
[2024-05-05 08:00] VITALS: PULSE 103; RESP 18; O2SAT 97
[2024-05-05 12:00] VITALS: BP 133/85; PULSE 118; RESP 17; TEMP 98.5; O2SAT 98
[2024-05-05 20:00] VITALS: BP 134/88; PULSE 123; RESP 20; TEMP 97.3; O2SAT 98
[2024-05-05] MEDS: METOPROLOL 25 MG TAB PO SCH (20:46)
[2024-05-05] MEDS: HYDROcodone/APAP 5/325 MG 1 TAB TAB PO PRN (22:17)
[2024-05-06 04:00] VITALS: BP 134/93; PULSE 110; RESP 20; TEMP 96.9; O2SAT 96
[2024-05-06 08:00] VITALS: PULSE 110; RESP 20; O2SAT 98
[2024-05-06] MEDS: GABAPENTIN 300 MG CAP PO SCH (09:31)
[2024-05-06] MEDS: LUBIPROSTONE 24 MCG CAPSULE PO SCH (09:31)
[2024-05-06 16:00] VITALS: BP 124/84; PULSE 117; RESP 18; TEMP 97.3; O2SAT 96
[2024-05-06 20:00] VITALS: PULSE 125; RESP 21; O2SAT 98
[2024-05-06] MEDS: METOPROLOL 50 MG TAB PO SCH (21:01)
[2024-05-07 04:00] VITALS: BP 101/67; PULSE 108; RESP 19; TEMP 97.6; O2SAT 93
[2024-05-07 08:00] VITALS: BP 116/77; PULSE 113; PULSE 119; RESP 18; RESP 21; TEMP 97.3; O2SAT 98
[2024-05-07 15:20] LABS: BASOPHILS # (AUTO) 0.1 K/uL (0.00-0.22); BASOPHILS % (AUTO) 0.8 % (0.0-2.0); EOSINOPHILS # (AUTO) 0.1 K/uL (0-0.4); EOSINOPHILS % (AUTO) 0.8 % (0.0-4.0); HEMATOCRIT 31.1 % (36-48); HEMOGLOBIN 9.5 g/dL (12.0-16.0); LYMPHOCYTES # (AUTO) 2.3 K/uL (2.5-16.5); LYMPHOCYTES % (AUTO) 16.7 % (20.5-51.1); MEAN CORPUSCULAR HEMOGLOBIN 26 pg (27-31); MEAN CORPUSCULAR HGB CONC 31 g/dL (33-37); MEAN CORPUSCULAR VOLUME 85.1 fL (80-94); MONOCYTES # (AUTO) 1.1 K/uL (0.8-1.0); MONOCYTES % (AUTO) 8.1 % (1.7-9.3); NEUTROPHILS % (AUTO) 73.6 % (42.2-75.2); PLATELET COUNT (AUTO) 997 K/uL (140-450); RED BLOOD CELL COUNT(AUTO) 3.65 MIL/uL (4.20-5.40); RED CELL DISTRIBUTION WIDTH 21.1 % (11.6-13.7); WHITE BLOOD COUNT (AUTO) 13.6 K/uL (4.8-10.8)
[2024-05-07 16:00] VITALS: BP 107/68; PULSE 107; RESP 18; TEMP 97.6; O2SAT 98
[2024-05-07 16:04] LABS: ALBUMIN 3.2 g/dL (3.4-5.0); ANION GAP 16.2 (8-16); CALCIUM 9.8 mg/dL (8.5-10.1); CARBON DIOXIDE 24.8 mmol/L (21-32); CREATININE 0.5 mg/dL (0.6-1.3); TOTAL BILIRUBIN 0.9 mg/dL (0.0-1.0); TOTAL PROTEIN, SERUM 8.8 g/dL (6.4-8.2)
[2024-05-07 20:00] VITALS: BP 129/78; PULSE 119; RESP 18; TEMP 98.1; O2SAT 97
[2024-05-08 04:00] VITALS: BP 115/75; PULSE 110; RESP 18; TEMP 97.6; O2SAT 100
[2024-05-08 08:00] VITALS: PULSE 119; RESP 18; O2SAT 96
[2024-05-08 16:00] VITALS: BP 115/82; PULSE 112; RESP 16; TEMP 98.6; O2SAT 99
[2024-05-08 20:00] VITALS: BP 122/77; PULSE 125; RESP 16; RESP 18; TEMP 97.4; O2SAT 98
[2024-05-09 08:00] VITALS: BP 141/89; PULSE 113; RESP 18; RESP 19; TEMP 97.7; O2SAT 98
[2024-05-09 16:00] VITALS: BP 132/94; PULSE 116; RESP 19; TEMP 97.7; O2SAT 96
[2024-05-09 20:01] VITALS: BP 133/84; PULSE 128; RESP 18; TEMP 96.9; O2SAT 93
[2024-05-09 20:02] VITALS: PULSE 128; RESP 18; O2SAT 93
[2024-05-09 23:17] VITALS: BP 132/81; PULSE 119; RESP 18; TEMP 98.8; O2SAT 100
[2024-05-10 04:00] VITALS: BP 110/76; PULSE 108; RESP 18; TEMP 97.7; O2SAT 100
[2024-05-10 12:00] VITALS: PULSE 124
[2024-05-10 12:15] VITALS: BP 124/87; PULSE 124; RESP 18
[2024-05-10 20:36] VITALS: BP 108/75; PULSE 120; RESP 18; RESP 20; TEMP 96.4; O2SAT 95
[2024-05-10 23:49] VITALS: BP 127/70; PULSE 98; RESP 18; TEMP 98.1; O2SAT 100
[2024-05-11 03:07] VITALS: BP 114/74; PULSE 104; RESP 18; TEMP 97.5; O2SAT 95
[2024-05-11 10:00] VITALS: BP 120/80; PULSE 115; RESP 18; TEMP 97.6; O2SAT 98
[2024-05-11 16:00] VITALS: BP 111/39; PULSE 81; RESP 18; TEMP 98.2; O2SAT 100
[2024-05-11 20:00] VITALS: BP 123/84; PULSE 115; PULSE 129; RESP 18; TEMP 98; O2SAT 100; O2SAT 98
[2024-05-12 04:00] VITALS: BP 104/67; PULSE 109; RESP 18; TEMP 97; O2SAT 98
[2024-05-12 08:00] VITALS: BP 122/70; PULSE 114; RESP 18; TEMP 97; O2SAT 98
[2024-05-12 08:08] VITALS: PULSE 110; RESP 19; O2SAT 99
[2024-05-12 16:00] VITALS: BP 108/88; PULSE 111; RESP 18; TEMP 97.3; O2SAT 98
[2024-05-12 20:00] VITALS: BP 118/71; PULSE 116; RESP 19; TEMP 97.6; O2SAT 99
[2024-05-13 04:00] VITALS: BP 112/75; PULSE 114; RESP 18; TEMP 97.2; O2SAT 99
[2024-05-13 08:00] VITALS: PULSE 100; RESP 18; O2SAT 97
[2024-05-13 12:00] VITALS: BP 114/66; PULSE 105; RESP 18; TEMP 98.3; O2SAT 98
[2024-05-13 20:00] VITALS: BP 128/75; PULSE 108; RESP 18; TEMP 98.4; O2SAT 96
[2024-05-14 04:00] VITALS: BP 133/81; PULSE 110; RESP 18; TEMP 97.9; O2SAT 97
[2024-05-14 08:11] VITALS: PULSE 108; RESP 18; O2SAT 96
[2024-05-14 18:14] VITALS: BP 110/78; PULSE 113; RESP 15; TEMP 99; O2SAT 100
[2024-05-14 20:00] VITALS: BP 112/62; PULSE 100; RESP 18; TEMP 98.5; O2SAT 97
[2024-05-15 04:00] VITALS: BP 118/58; PULSE 98; RESP 18; TEMP 98.3; O2SAT 97
[2024-05-15 15:39] VITALS: BP 115/78; PULSE 100; RESP 18; TEMP 98.6
== END 2024-05-15 16:20 | DRG 720 ==
LOC: MED 16:26 → MTU 23:54
PROVIDERS: ADMIT Internal Medicine; ATTEND Internal Medicine
PROC: 0DJ08ZZ Inspection of Upper Intestinal Tract, Via Natural or Artificial Opening Endoscopic (ICD-10-PCS; principal; 2024-04-20 13:20)
PROC: 0DJD8ZZ Inspection of Lower Intestinal Tract, Via Natural or Artificial Opening Endoscopic (ICD-10-PCS; 2024-04-20 13:20)
DX: A41.9 Sepsis, unspecified organism (principal); E44.1 Mild protein-calorie malnutrition; E87.1 Hypo-osmolality and hyponatremia; K70.11 Alcoholic hepatitis with ascites; K70.9 Alcoholic liver disease, unspecified; G62.1 Alcoholic polyneuropathy; R16.0 Hepatomegaly, not elsewhere classified; K76.0 Fatty (change of) liver, not elsewhere classified; D64.9 Anemia, unspecified; D75.839 Thrombocytosis, unspecified; E80.6 Other disorders of bilirubin metabolism; K59.09 Other constipation; K52.9 Noninfective gastroenteritis and colitis, unspecified; F17.210 Nicotine dependence, cigarettes, uncomplicated; Z79.899 Other long term (current) drug therapy; Z68.25 Body mass index [BMI] 25.0-25.9, adult; N39.0 Urinary tract infection, site not specified
CPT/HCPCS: 36415; 70450; 76700; 76705; 76830; 78445; 80048; 80053; 80076; 80305; 81001; 82533; 82550; 82607; 82728; 82746; 83036; 83516; 83540; 83605; 83690; 83735; 83835; 84439; 84443; 84703; 85025; 85610; 85651; 86038; 86140; 86304; 86376; 86706; 86708; 86800; 86804; 87040; 87081; 87086; 87340; 87522; 93005; 96365; 97110; 97112; 97116; 97163-GP; 97530; 99291; A9510; C9113; G0482; J1200; J1644; J2250; J2270; J2543; J3010; J3475; J7030; J7060; Q0092; Q9967